=== PATIENT | female | born 1990 | race Two or more races ===

== ENCOUNTER 2022-04-16 13:13 | Inpatient (IN) | payer SELFPAY ==
[2022-04-16] MEDS ORDERED: Nalbuphine HCl 10 MG/ 1ML Amp IVPUSH PRN (13:21)
[2022-04-16] MEDS ORDERED: Methylergonovine 0.2 MG/1 ML Amp IM PRN (13:21)
[2022-04-16] MEDS ORDERED: Acetaminophen 325 MG Tab PO PRN ×2 (13:21→17:35)
[2022-04-16] MEDS ORDERED: Ondansetron 4 MG/2 ML SDV IVPUSH PRN (13:21)
[2022-04-16] MEDS ORDERED: Calcium Carbonate 500 MG Tab.Chew PO PRN (13:21)
[2022-04-16] MEDS ORDERED: Lactated Ringers 1,000 ML IV SCH (13:30)
[2022-04-16] MEDS ORDERED: Oxytocin/Lactated Ringers 10 UNIT/1,000 ML BAG IV SCH (13:30)
[2022-04-16] MEDS ORDERED: Lidocaine 1% 50 ML MDV ONE (15:40)
[2022-04-16] MEDS ORDERED: Docusate Sodium 100 MG Cap PO PRN (17:35)
[2022-04-16] MEDS ORDERED: Benzocaine/Menthol 20%-0.5% Spray 78 GM Cannister TOP PRN (17:35)
[2022-04-16] MEDS ORDERED: Witch Hazel Medicated Pads 40/Jar TOP PRN (17:35)
[2022-04-16] MEDS ORDERED: Sodium Chloride 0.9% 10 ML Syringe FLUSH SCH (21:00)
[2022-04-17] MEDS: Ibuprofen 600 MG Tab PO PRN (14:24)
[2022-04-18] MEDS: Ibuprofen 600 MG Tab PO PRN (00:32)
== END 2022-04-18 14:00 | disposition home or self-care (01) | DRG 807 ==
LOC: JD.OBCHECK 13:13 → JD.OB 13:21 → UNDOADMOB 13:21 → OBSVTOIN 16:09 → INTOOBSV 16:09 → JD.OB 16:10 → JD.MS 16:10 → OBSVTOIN 17:35 → JD.MS 17:35 → JD.OB 04-17 11:33
PROVIDERS: ADMIT Obstetrics & Gynecology; ATTEND Obstetrics & Gynecology
PROC: 10E0XZZ Delivery of Products of Conception, External Approach (ICD-10-PCS; principal; 2022-04-16)
DX: O70.1 Second degree perineal laceration during delivery (principal); Z37.0 Single live birth; Z3A.38 38 weeks gestation of pregnancy
CPT/HCPCS: 36415; 59020; 59409; 85025; 86592; 86762; 86803; 86850; 86900; 86901; 87340; A9270-GY; G0433; J2001; J2210; J7120